=== PATIENT | male | born 2000 | race Caucasian/White ===

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

== ENCOUNTER 2022-02-19 14:27 | Outpatient (CLI) | payer OTHER | END 2022-02-19 14:45 | disposition home or self-care (01) | LOC: SONOGRAMA 14:27 | PROVIDERS: ATTEND General Practice | DX: M54.2 Cervicalgia (principal); E04.1 Nontoxic single thyroid nodule ==

== ENCOUNTER 2022-02-19 15:58 | Outpatient (CLI) | payer OTHER | END 2022-02-19 16:06 | disposition home or self-care (01) | LOC: LAB 15:58 | PROVIDERS: ATTEND General Practice | DX: R77.1 Abnormality of globulin (principal) ==